=== PATIENT | female | born 1940 | race Caucasian/White ===

== ENCOUNTER → 2019-10-04 | Outpatient (CLI) | payer MEDICARE, OTHER ==
[~2019-10-04] MED LIST: REGADENOSON 0.4 MG/5 ML SYRINGE ONE
== END | disposition home or self-care (01) ==
LOC: CFH 07:56
PROVIDERS: ATTEND Internal Medicine Cardiovascular Disease
DX: I25.89 Other forms of chronic ischemic heart disease (principal); I21.29 ST elevation (STEMI) myocardial infarction involving other sites; I73.9 Peripheral vascular disease, unspecified; I10 Essential (primary) hypertension; E78.5 Hyperlipidemia, unspecified
CPT/HCPCS: 78452; 93017; A9502; J2785

== ENCOUNTER 2020-01-09 10:04 | Day surgery (SDC) | payer MEDICARE, OTHER ==
[~2020-01-09] VITALS: Ht 162.6 cm; Wt 63.2 kg
[2020-01-09 10:37] VITALS: BP 204/83
[2020-01-09] MEDS ORDERED: ATEN50TA41 PO (10:59)
[2020-01-09] MEDS ORDERED: ASCO100T5 PO (10:59)
[2020-01-09] MEDS ORDERED: ASPI81TA45 PO (10:59)
[2020-01-09] MEDS ORDERED: EYE SUPPORT PO (10:59)
[2020-01-09] MEDS ORDERED: PSYL0.5243 PO (10:59)
[2020-01-09] MEDS ORDERED: LEVO50TA5 PO (10:59)
[2020-01-09] MEDS ORDERED: UBID30CA9 PO (10:59)
[2020-01-09] MEDS ORDERED: KRIL1CAP7 PO (10:59)
[2020-01-09] MEDS ORDERED: ELDE1CAP PO (10:59)
[2020-01-09] MEDS ORDERED: [UNRECOGNIZED DRUG - OTHER] PO (10:59)
[2020-01-09] MEDS ORDERED: ASTA4CAP PO (10:59)
[2020-01-09] MEDS ORDERED: ALA PO (10:59)
[2020-01-09] MEDS ORDERED: [UNRECOGNIZED DRUG - OTHER] PO (10:59)
[2020-01-09] MEDS ORDERED: TELM40TA PO (10:59)
[2020-01-09] MEDS ORDERED: VITA15LO2 PO (10:59)
[2020-01-09] MEDS ORDERED: ROSU20TA2 PO (10:59)
[2020-01-09] MEDS ORDERED: OMEP-110 PO (10:59)
[2020-01-09] MEDS ORDERED: VITA100C10 PO (10:59)
[2020-01-09] MEDS ORDERED: SODIUM CHLORIDE 0.9% 1,000 ML IV SCH (11:00)
[2020-01-09 11:27] LABS: BASOPHILS % (AUTO) 1 % (0-1); EOSINOPHILS % (AUTO) 2 % (1-7); LYMPHOCYTES % (AUTO) 23 % (22-44); MD NO; MEAN CORPUSCULAR HEMOGLOBIN 28.6 pg (27.0-34.8); MEAN CORPUSCULAR HGB CONC 33.4 g/dL (32.4-35.8); MEAN PLATELET VOLUME 8.7 fL (7.4-10.4); MONOCYTES % (AUTO) 11 % (2-9); NEUTROPHILS % (AUTO) 63 % (42-75); PLATELET COUNT 215 x10^3/uL (130-400); RED BLOOD COUNT 4.35 x10^6/uL (3.82-5.3); RED CELL DISTRIBUTION WIDTH 13.9 % (9.6-15.2)
[2020-01-09] MEDS ORDERED: MIDAZOLAM 1 MG/ML, 5ML ONE (11:27)
[2020-01-09] MEDS ORDERED: LIDOCAINE 1%, 20ML ONE (11:27)
[2020-01-09] MEDS ORDERED: FENTANYL PF 100 MCG/2ML ONE (11:27)
[2020-01-09] MEDS ORDERED: BIVALIRUDIN 250 MG ONE (11:27)
[2020-01-09 11:36] LABS: ANION GAP 8 mmol/L (5-15); CALCIUM 9.2 mg/dL (8.5-10.1); CHLORIDE 104 mmol/L (98-107); CREATININE 0.82 mg/dL (0.55-1.02)
[2020-01-09] MEDS ORDERED: VERAPAMIL 2.5 MG/ML, 2ML ONE (11:41)
[2020-01-09] MEDS ORDERED: ONDANSETRON 2MG/ML, 2ML ONE (11:53)
== END 2020-01-09 15:04 | disposition home or self-care (01) ==
LOC: CACL 10:04
PROVIDERS: ATTEND Internal Medicine Cardiovascular Disease
DX: R94.39 Abnormal result of other cardiovascular function study (principal); I25.118 Atherosclerotic heart disease of native coronary artery with other forms of angina pectoris; I25.84 Coronary atherosclerosis due to calcified coronary lesion; I25.83 Coronary atherosclerosis due to lipid rich plaque; I49.3 Ventricular premature depolarization; I10 Essential (primary) hypertension; I34.0 Nonrheumatic mitral (valve) insufficiency; E78.5 Hyperlipidemia, unspecified; E03.9 Hypothyroidism, unspecified; G47.33 Obstructive sleep apnea (adult) (pediatric); K21.9 Gastro-esophageal reflux disease without esophagitis; I73.9 Peripheral vascular disease, unspecified; E66.9 Obesity, unspecified; Z68.23 Body mass index [BMI] 23.0-23.9, adult; Z79.890 Hormone replacement therapy; Z79.899 Other long term (current) drug therapy; Z87.891 Personal history of nicotine dependence; Z88.7 Allergy status to serum and vaccine; Z95.5 Presence of coronary angioplasty implant and graft; Z82.49 Family history of ischemic heart disease and other diseases of the circulatory system
CPT/HCPCS: 36415; 75630; 80048; 85025; 93458; 99156; 99157; C1760; C1769; C1894; J2250; J2405; J3010; Q9967; 75625; J0583